=== PATIENT | female | born 1985 | race Caucasian/White ===

== ENCOUNTER 2019-06-04 15:14 | Emergency (ER) | payer MEDICAID ==
[~2019-06-04] VITALS: Ht 167.6 cm; Wt 53.5 kg
[2019-06-04 15:22] VITALS: Ht 167.6 cm; Wt 53.5 kg
[2019-06-04 18:55] VITALS: BP 110/65
== END 2019-06-04 17:55 | disposition home or self-care (01) ==
LOC: ED 15:14
DX: S51.811A Laceration without foreign body of right forearm, initial encounter (principal); F15.10 Other stimulant abuse, uncomplicated; F32.9 Major depressive disorder, single episode, unspecified; F17.210 Nicotine dependence, cigarettes, uncomplicated; Z71.6 Tobacco abuse counseling; Z59.0 Homelessness; X58.XXXA Exposure to other specified factors, initial encounter; Y93.89 Activity, other specified; Y92.89 Other specified places as the place of occurrence of the external cause; Y99.8 Other external cause status
CPT/HCPCS: 90715; 99406

== ENCOUNTER 2019-08-25 01:02 | Emergency (ER) | payer OTHER ==
[~2019-08-25] VITALS: Ht 167.6 cm; Wt 52.7 kg
[2019-08-25 01:10] VITALS: Ht 167.6 cm; Wt 52.7 kg
[2019-08-25 01:56] LABS: BASOPHIL % 0.6 % (0-2); PLATELET COUNT 280 x10^3mcL (130-400); RED CELL DISTRIBUTION WIDTH 15.4 % (11.5-14.5)
[2019-08-25 02:10] LABS: ALKALINE PHOSPHATASE 73 U/L (46-116); ALT/SGPT 17 U/L (14-59); AST/SGOT 21 U/L (15-37); BILIRUBIN TOTAL 0.2 mg/dL (0.20-1.00); CALCIUM 8.5 mg/dL (8.5-10.1); CARBON DIOXIDE 33.3 mmol/L (21-32); CHLORIDE SERUM 95 mmol/L (98-107); CREATININE SERUM 0.9 mg/dL (0.6-1.0); GFR1 > 60 mL/min; GLUCOSE SERUM 112 mg/dL (74-106); MAGNESIUM 1.7 mg/dL (1.8-2.4); SODIUM SERUM 136 mmol/L (136-145); T4(THYROXINE) 5.7 ug/dL (4.7-13.3); TOTAL PROTEIN, SERUM 6.7 g/dL (6.4-8.2)
[2019-08-25 02:12] LABS: ALBUMIN 3.3 g/dL (3.4-5.0)
[2019-08-25 02:13] LABS: POTASSIUM SERUM 2.7 mmol/L (3.5-5.1)
[2019-08-25 02:52] LABS: AMPHETAMINE QUAL UR NONE DETECTED (See below)
[2019-08-25 04:28] VITALS: BP 93/60
== END 2019-08-25 04:25 | disposition home or self-care (01) ==
LOC: ED 01:02
PROVIDERS: Emergency Medicine
DX: R00.2 Palpitations (principal); E87.6 Hypokalemia; Z88.8 Allergy status to other drugs, medicaments and biological substances; Z88.2 Allergy status to sulfonamides
CPT/HCPCS: 36415; Q0092

== ENCOUNTER 2019-10-17 12:44 | Emergency (ER) | payer OTHER ==
[~2019-10-17] VITALS: Ht 165.1 cm; Wt 49.0 kg
[2019-10-17 12:54] VITALS: Ht 165.1 cm; Wt 49.0 kg
[2019-10-17 13:58] VITALS: BP 87/54
[2019-10-17 15:54] LABS: AMPHETAMINE QUAL UR NONE DETECTED (See below)
== END 2019-10-17 14:57 | disposition home or self-care (01) ==
LOC: ED 12:44
PROVIDERS: Emergency Medicine
DX: F41.9 Anxiety disorder, unspecified (principal); F31.9 Bipolar disorder, unspecified; F17.210 Nicotine dependence, cigarettes, uncomplicated; F15.90 Other stimulant use, unspecified, uncomplicated; F11.90 Opioid use, unspecified, uncomplicated; R20.0 Anesthesia of skin; Z98.890 Other specified postprocedural states
CPT/HCPCS: 82962; 99406